=== PATIENT | male | born 1980 | race Caucasian/White ===

== ENCOUNTER 2022-08-27 02:56 | Emergency (ER) | payer SELFPAY ==
[~2022-08-27] VITALS: Ht 175.3 cm; Wt 105.0 kg
[2022-08-27 03:33] VITALS: BP 15/75
== END 2022-08-27 04:30 | disposition left against medical advice (07) ==
LOC: ER 02:56
DX: Z53.21 Procedure and treatment not carried out due to patient leaving prior to being seen by health care provider (principal)